=== PATIENT | male | born 1960 | race Two or more races ===

== ENCOUNTER 2017-08-28 18:24 | Inpatient (IN) | payer OTHER ==
[~2017-08-28] VITALS: Ht 165.1 cm; Wt 92.7 kg
[2017-08-28 22:07] LABS: Basophils # (auto) 0.1 uL; Eosinophils # (auto) 0.1 uL; Eosinophils % (auto) 1.6 % (0.0-7.0); Hematocrit 46.3 % (41.0-53.0); Hemoglobin 15.8 g/dL (13.5-17.5); Lymphocytes # (auto) 1.8 uL; Lymphocytes % (auto) 26.4 % (10.0-50.0); Mean Corpuscular Hemoglobin 29.8 pg (28.0-32.0); Mean Corpuscular Volume 87.5 fL (80.0-100.0); Monocytes # (auto) 0.3 uL; Neutrophils # (auto) 4.5 uL; Nucleated Red Blood Cells % 0.2 %; Platelet Count (auto) 205 10^3/uL (140-450); Red Cell Distribution Width 14.7 % (11.8-14.3); White Blood Cell 6.8 10^3/uL (4.4-10.8)
[2017-08-28 22:20] LABS: Albumin 4.1 g/dL (3.4-5.0); BUN/Creatinine Ratio 16.5; Bilirubin, Total 0.4 mg/dL (0.2-1.0); Calcium 8.5 mg/dL (8.5-10.1); Magnesium 2.5 mg/dL (1.6-2.6); Potassium 3.9 mmol/L (3.5-5.1); Total Protein 8.1 g/dL (6.4-8.2)
[2017-08-29] MEDS ORDERED: MORPHINE SULF INJ 2 MG/ML SYRINGE 1ML IV PRN (01:00)
[2017-08-29] MEDS ORDERED: NITROGLYCERIN 0.4 MG SL TAB SL PRN (01:00)
[2017-08-29] MEDS ORDERED: ACETAMINOPHEN 325 MG TAB PO PRN (01:00)
[2017-08-29] MEDS: SODIUM CHLOR 0.9% PF (SALINE LOCK) 10ML VIAL IV SCH ×3 (06:51→21:24)
[2017-08-29] MEDS: ASPirin 81 mg TAB PO SCH (10:26)
[2017-08-29] MEDS: METOPROLOL TARTRATE 25 MG TAB PO SCH (10:26)
[2017-08-29] MEDS: LISINOPRIL 5 MG TAB PO SCH (10:26)
[2017-08-29 17:52] VITALS: BP 125/84
[2017-08-29 17:55] VITALS: BP 125/84
[2017-08-29 20:00] VITALS: BP 130/78
[2017-08-29] MEDS: AMITRIPTYLINE HCL 25 MG TAB PO SCH (21:24)
[2017-08-29 22:17] VITALS: BP 130/78
[2017-08-30] MEDS: HYDROcodone-ACET 10/325MG TAB PO PRN ×2 (00:29→09:32)
[2017-08-30] MEDS ORDERED: ONDANSETRON HCL 4 MG/2 ML VIAL IV ONE (02:45)
[2017-08-30 05:23] VITALS: BP 116/81
[2017-08-30] MEDS: SODIUM CHLOR 0.9% PF (SALINE LOCK) 10ML VIAL IV SCH ×3 (05:27→21:57)
[2017-08-30 08:00] VITALS: BP 126/79
[2017-08-30 09:00] VITALS: BP 126/79
[2017-08-30] MEDS: ASPirin 81 mg TAB PO SCH (09:31)
[2017-08-30] MEDS: PANTOPRAZOLE 40 MG TAB PO SCH (09:31)
[2017-08-30] MEDS: METOPROLOL TARTRATE 25 MG TAB PO SCH (09:32)
[2017-08-30] MEDS: LISINOPRIL 5 MG TAB PO SCH (09:32)
[2017-08-30 13:00] VITALS: BP 125/73
[2017-08-30 17:00] VITALS: BP 121/78
[2017-08-30 21:56] VITALS: BP 119/79
[2017-08-30] MEDS: AMITRIPTYLINE HCL 25 MG TAB PO SCH (21:57)
[2017-08-31 01:57] LABS: Alcohol, Urine < 3.0 mg/dL (0-5); Amphetamine Screen, Urine NEGATIVE (NEGATIVE); Barbiturate Scree,Urine NEGATIVE (NEGATIVE); Benzodiazephine Screen, Urine NEGATIVE (NEGATIVE); Cannabinoid Screen, Urine NEGATIVE (NEGATIVE); Cocaine Screen, Urine NEGATIVE (NEGATIVE); Opiate Scree,Urine NEGATIVE (NEGATIVE); Phencyclidine Screen, Urine NEGATIVE (NEGATIVE)
[2017-08-31 04:51] VITALS: BP 111/76
[2017-08-31] MEDS: SODIUM CHLOR 0.9% PF (SALINE LOCK) 10ML VIAL IV SCH ×3 (05:34→21:23)
[2017-08-31 08:00] VITALS: BP 109/66
[2017-08-31] MEDS: PANTOPRAZOLE 40 MG TAB PO SCH (10:00)
[2017-08-31] MEDS: LISINOPRIL 5 MG TAB PO SCH (10:00)
[2017-08-31] MEDS: ASPirin 81 mg TAB PO SCH (10:00)
[2017-08-31] MEDS: METOPROLOL TARTRATE 25 MG TAB PO SCH (10:00)
[2017-08-31] MEDS ORDERED: ADENOSINE 77 MG in GIVE UN-DILUTED 0 ML IV ONE (10:15)
[2017-08-31 12:07] VITALS: BP 128/77
[2017-08-31 13:00] VITALS: BP 124/82
[2017-08-31 16:42] VITALS: BP 90/55
[2017-08-31] MEDS: AMITRIPTYLINE HCL 25 MG TAB PO SCH (21:23)
[2017-08-31 22:22] VITALS: BP 114/76
[2017-09-01] MEDS: SODIUM CHLOR 0.9% PF (SALINE LOCK) 10ML VIAL IV SCH ×3 (05:42→21:17)
[2017-09-01 05:49] VITALS: BP 100/59
[2017-09-01] MEDS: ASPirin 81 mg TAB PO SCH (08:41)
[2017-09-01] MEDS: PANTOPRAZOLE 40 MG TAB PO SCH (08:42)
[2017-09-01] MEDS: LISINOPRIL 5 MG TAB PO SCH (08:42)
[2017-09-01] MEDS: METOPROLOL TARTRATE 25 MG TAB PO SCH (08:43)
[2017-09-01 09:10] VITALS: BP 106/72
[2017-09-01 11:50] VITALS: BP 116/81
[2017-09-01 16:56] VITALS: BP 110/74
[2017-09-01] MEDS: AMITRIPTYLINE HCL 25 MG TAB PO SCH (21:18)
[2017-09-01 22:00] VITALS: BP 109/72
[2017-09-02 04:58] VITALS: BP 92/57
[2017-09-02] MEDS: SODIUM CHLOR 0.9% PF (SALINE LOCK) 10ML VIAL IV SCH ×2 (05:44→21:34)
[2017-09-02 09:00] VITALS: BP 116/73
[2017-09-02] MEDS: METOPROLOL TARTRATE 25 MG TAB PO SCH (10:00)
[2017-09-02] MEDS: ASPirin 81 mg TAB PO SCH (10:16)
[2017-09-02] MEDS: PANTOPRAZOLE 40 MG TAB PO SCH (10:16)
[2017-09-02] MEDS: LISINOPRIL 5 MG TAB PO SCH (10:18)
[2017-09-02 13:00] VITALS: BP 120/77
[2017-09-02 17:00] VITALS: BP 123/85
[2017-09-02 20:00] VITALS: BP 121/71
[2017-09-02] MEDS: AMITRIPTYLINE HCL 25 MG TAB PO SCH (21:34)
[2017-09-02 21:53] VITALS: BP 121/71
[2017-09-03 05:00] VITALS: BP 97/59
[2017-09-03] MEDS: SODIUM CHLOR 0.9% PF (SALINE LOCK) 10ML VIAL IV SCH ×3 (05:18→21:11)
[2017-09-03 09:05] VITALS: BP 110/71
[2017-09-03] MEDS: PANTOPRAZOLE 40 MG TAB PO SCH (09:54)
[2017-09-03] MEDS: ASPirin 81 mg TAB PO SCH (09:54)
[2017-09-03] MEDS: LISINOPRIL 5 MG TAB PO SCH (09:55)
[2017-09-03] MEDS: METOPROLOL TARTRATE 25 MG TAB PO SCH (09:55)
[2017-09-03] MEDS ORDERED: ADENOSINE 78 MG in GIVE UN-DILUTED 0 ML IV STA (10:32)
[2017-09-03 15:08] VITALS: BP 110/71
[2017-09-03 20:00] VITALS: BP 119/83
[2017-09-03] MEDS: AMITRIPTYLINE HCL 25 MG TAB PO SCH (21:11)
[2017-09-03 22:00] VITALS: BP 119/83
[2017-09-04 06:01] VITALS: BP 103/62
[2017-09-04 08:30] VITALS: BP 117/82
[2017-09-04 08:59] VITALS: BP 117/72
[2017-09-04] MEDS: PANTOPRAZOLE 40 MG TAB PO SCH (09:38)
[2017-09-04] MEDS: LISINOPRIL 5 MG TAB PO SCH (09:38)
[2017-09-04] MEDS: METOPROLOL TARTRATE 25 MG TAB PO SCH (09:38)
[2017-09-04] MEDS: ASPirin 81 mg TAB PO SCH (09:38)
[2017-09-04 13:00] VITALS: BP 119/72
[2017-09-04] MEDS: SODIUM CHLOR 0.9% PF (SALINE LOCK) 10ML VIAL IV SCH (14:27)
[2017-09-04 17:27] VITALS: BP 137/89
[2017-09-04 22:00] VITALS: BP 130/85
[2017-09-04] MEDS: AMITRIPTYLINE HCL 25 MG TAB PO SCH (22:00)
[2017-09-05] MEDS ORDERED: ATOR20TA50 PO (03:58)
[2017-09-05] MEDS ORDERED: ASP81EC PO (03:59)
[2017-09-05] MEDS ORDERED: AMIT25TA9 PO (03:59)
[2017-09-05] MEDS ORDERED: METO25TA5 PO (04:00)
[2017-09-05] MEDS ORDERED: LISI40TA PO (04:01)
[2017-09-05] MEDS ORDERED: PANT40TA2 PO (04:01)
[2017-09-05] MEDS: SODIUM CHLOR 0.9% PF (SALINE LOCK) 10ML VIAL IV SCH ×2 (05:45→06:54)
[2017-09-05 06:00] VITALS: BP 101/64
[2017-09-05] MEDS ORDERED: LISI-275 PO (07:00)
[2017-09-05 09:00] VITALS: BP 108/76
[2017-09-05] MEDS: METOPROLOL TARTRATE 25 MG TAB PO SCH (09:48)
[2017-09-05] MEDS: ASPirin 81 mg TAB PO SCH (09:48)
[2017-09-05] MEDS: PANTOPRAZOLE 40 MG TAB PO SCH (09:48)
[2017-09-05] MEDS: LISINOPRIL 5 MG TAB PO SCH (09:49)
== END 2017-09-05 14:25 | DRG 313 ==
LOC: ER 18:24 → TELE 18:25 → EEVIPCON 18:25 → TELE-E-ADS 08-29 16:04 → EAST 08-29 19:14 → TELE-E-ADS 09-05
PROVIDERS: ADMIT Internal Medicine; ATTEND Internal Medicine
DX: R07.89 Other chest pain (principal); E11.40 Type 2 diabetes mellitus with diabetic neuropathy, unspecified; G43.909 Migraine, unspecified, not intractable, without status migrainosus; I10 Essential (primary) hypertension; G89.29 Other chronic pain; M19.90 Unspecified osteoarthritis, unspecified site; Z79.899 Other long term (current) drug therapy
CPT/HCPCS: 36415; 71046; 76705; 80053; 80307; 83735; 84484; 85025; 87081; 93005; 93017; J0153; J2405

== ENCOUNTER → 2020-07-17 | Outpatient (CLI) | payer OTHER ==
[~2020-07-17] MED LIST: AMIT25TA9 PO; ASPI-394 PO; ATOR20TA50 PO; LISI-275 PO; METO25TA5 PO; PANT40TA2 PO
== END | disposition home or self-care (01) ==
LOC: XY 13:24
DX: M79.662 Pain in left lower leg (principal)
CPT/HCPCS: 93971

== ENCOUNTER → 2020-10-29 | Outpatient (CLI) | payer OTHER | END | disposition home or self-care (01) | LOC: XYW 15:19 | DX: M79.89 Other specified soft tissue disorders (principal); R59.0 Localized enlarged lymph nodes | CPT/HCPCS: 93971 ==